=== PATIENT | male | born 1980 | race Caucasian/White ===

== ENCOUNTER 2022-03-09 09:23 | Emergency (ER) | payer OTHER ==
[2022-03-09 11:14] LABS: HEMOGLOBIN 13.9 gm/dl (14.0-17.5); RED BLOOD COUNT 4.67 M/UL (4.20-5.50); WHITE BLOOD COUNT 7.5 K/UL (4.5-11.0)
[2022-03-09 11:34] LABS: BUN/CREATININE RATIO 12 (0-10)
== END 2022-03-09 12:43 | disposition home or self-care (01) ==
LOC: ER1 09:23
PROVIDERS: Nurse Practitioner
DX: U07.1 COVID-19 (principal); E11.9 Type 2 diabetes mellitus without complications; F17.210 Nicotine dependence, cigarettes, uncomplicated
CPT/HCPCS: 0240U; 71045; 80053; 85025; 96374; 99284; J1100

== ENCOUNTER 2022-05-18 22:13 | Emergency (ER) | payer OTHER ==
[2022-05-18 23:23] LABS: HEMOGLOBIN 14.8 gm/dl (14.0-17.5); RED BLOOD COUNT 4.99 M/UL (4.20-5.50); WHITE BLOOD COUNT 11.9 K/UL (4.5-11.0)
[2022-05-18 23:55] LABS: BUN/CREATININE RATIO 12 (0-10)
[2022-05-19] MEDS ORDERED: BENZONATATE100 MG PO (00:58)
[2022-05-19] MEDS ORDERED: NORFLEX 100 MG100 MG PO (00:58)
[2022-05-19] MEDS ORDERED: IBUPROFEN600 MG PO (00:58)
== END 2022-05-19 01:10 | disposition home or self-care (01) ==
LOC: ER1 22:13
PROVIDERS: Family Medicine
DX: R07.89 Other chest pain (principal); J06.9 Acute upper respiratory infection, unspecified; F17.210 Nicotine dependence, cigarettes, uncomplicated; Z20.822 Contact with and (suspected) exposure to COVID-19
CPT/HCPCS: 71045; 80053; 85025; 96372; 99283; J1885; U0002